=== PATIENT | female | born 1950 | race Caucasian/White ===

== ENCOUNTER 2023-08-04 08:26 | Inpatient (IN) | payer OTHER, BC ==
[2023-07-29 13:19] VITALS: BMI 35.9
[2023-08-04] MEDS ORDERED: ONDANSETRON 4 MG/2 ML VIAL IVPUSH PRN (08:53)
[2023-08-04] MEDS ORDERED: oxyCODONE HCL 5 MG TABLET PO PRN (08:53)
[2023-08-04] MEDS ORDERED: ACETAMINOPHEN 325 MG TABLET (FP) PO PRN (08:53)
[2023-08-04] MEDS ORDERED: VANCOMYCIN 1,000 MG VIAL (RESTRICTED TO ID ONLY) ONE (09:22)
[2023-08-04] MEDS ORDERED: MIDAZOLAM HCL 2 MG/2 ML SINGLE DOSE VIAL ONE ×2 (10:00→12:51)
[2023-08-04] MEDS ORDERED: ACETAMINOPHEN INJECTION 100 ML IVPB ONE (10:00)
[2023-08-04] MEDS ORDERED: BUPIVACAINE HCL/PF 0.5% (5MG/ML) 10 ML VIAL ONE (10:00)
[2023-08-04] MEDS ORDERED: BUPIVACAINE LIPOSOME/PF (EXPAREL) 266 MG/20 ML VIAL ONE (10:00)
[2023-08-04] MEDS ORDERED: FENTANYL CITRATE/PF 50 MCG/ML VIAL ONE ×2 (10:00→15:38)
[2023-08-04] MEDS ORDERED: TRANEXAMIC ACID 1000 MG/10 ML VIAL ONE ×2 (12:50→13:32)
[2023-08-04] MEDS ORDERED: PROPOFOL 20 ML ONE (13:00)
[2023-08-04] MEDS ORDERED: BUPIVICAINE 0.25%/MORPH PF/KETOROLAC - 51ML DISP.SYRINGE IA ONE (13:55)
[2023-08-04] MEDS ORDERED: MAGNESIUM HYDROX 2400MG/30ML ORAL SUSPENSION 30 ML CUP PO PRN (14:55)
[2023-08-04] MEDS ORDERED: MAG HYDROX/AL HYDROX/SIMETH 30 ML UNIT-DOSE CUP PO PRN (14:55)
[2023-08-04] MEDS: ONDANSETRON 4 MG/2 ML VIAL IVPUSH PRN (15:43)
[2023-08-04] MEDS: LACTATED RINGERS SOLUTION 1,000 ML IV SCH (15:59)
[2023-08-04] MEDS: CEFAZOLIN SODIUM 2 GM in DEXTROSE 5%-WATER 100 ML IVPB SCH (17:31)
[2023-08-04] MEDS: oxyCODONE HCL 5 MG TABLET PO PRN (17:38)
[2023-08-04] MEDS: ASCORBIC ACID 500 MG TABLET (FP) PO SCH (21:07)
[2023-08-04] MEDS: ASPIRIN 81 MG CHEWABLE TABLETS PO SCH (21:07)
[2023-08-04] MEDS: FAMOTIDINE 20 MG TABLET PO SCH (21:07)
[2023-08-04] MEDS: DEXAMETHASONE 4 MG TABLET (FP) PO ONE (21:08)
[2023-08-04] MEDS: SENNOSIDES/DOCUSATE COMBO (SENNA PLUS) TABLET (UD) PO SCH (21:08)
[2023-08-04] MEDS: CELECOXIB 100 MG CAPSULE PO SCH (21:08)
[2023-08-04] MEDS: BUDESONIDE/FORMETEROL FUMARATE 160/4.5 mcg INHALER IH SCH (21:09)
[2023-08-05] MEDS: ACETAMINOPHEN 1000 MG/100 ML BAG IVPB PRN (00:05)
[2023-08-05] MEDS: HYDROmorphone HCl 2 MG/ML VIAL IVPB PRN (07:02)
[2023-08-05 07:56] LABS: HEMATOCRIT 40.1 % (32.4-45.2); HEMOGLOBIN 12.8 G/dL (10.7-15.3); MCH 30.1 pg (25.7-33.7); MEAN CELL VOLUME 94.1 fl (80-96); MEAN PLT VOLUME 7.8 fl (7.5-11.1); PLATELET COUNT 367.5 10^3/uL (134-434); RBC 4.26 10^6/uL (3.60-5.2); RDW 13.9 % (11.6-15.6); WHITE BLOOD COUNT 11.6 10^3/uL (4.0-10.8)
[2023-08-05] MEDS: DEXAMETHASONE 4 MG TABLET (FP) PO ONE (09:07)
[2023-08-05] MEDS: KETOROLAC TROMETHAMINE 15 MG/ML VIAL IVPUSH PRN (09:07)
[2023-08-05] MEDS: MULTIVITAMINS (DAILY MVI) TABLET (FP) PO SCH (09:08)
[2023-08-05] MEDS: VALSARTAN 80 MG TABLET PO SCH (09:08)
[2023-08-05] MEDS: HYDROCHLOROTHIAZIDE 12.5 MG CAPSULE (FP) PO SCH (09:08)
[2023-08-05] MEDS: OMEGA-3 ACID ETHYL ESTERS (FATTY-ACIDS) 1 GM CAPSULE (FP) PO SCH (09:08)
[2023-08-05] MEDS: ATORVASTATIN CA 10 MG TABLET (FP) PO SCH (09:08)
[2023-08-05] MEDS ORDERED: PATIENT'S OWN MEDICATION (NON-FORMULARY) (Valsartan/Hydrochlorothiazide [Valsartan-Hctz 80 PO SCH (10:00)
[2023-08-05 11:19] VITALS: RESP 18
[2023-08-05 15:53] VITALS: BP 129/64; PULSE 70; TEMP 98.2
[2023-08-05] MEDS ORDERED: TRANEXAMIC ACID 1000 MG/10 ML VIAL IVPUSH ONE (19:00)
== END 2023-08-05 15:35 | disposition home health service (06) | DRG 470 ==
LOC: FASUSAT 08:26 → FM/S 14:55
PROVIDERS: ADMIT Internal Medicine; ATTEND Internal Medicine
PROC: 8E0Y0CZ Robotic Assisted Procedure of Lower Extremity, Open Approach (ICD-10-PCS; 2023-08-04)
PROC: 0SRC0JZ Replacement of Right Knee Joint with Synthetic Substitute, Open Approach (ICD-10-PCS; principal; 2023-08-04 13:16)
DX: M17.11 Unilateral primary osteoarthritis, right knee (principal)
CPT/HCPCS: 36415; 73560-TC-RT-FY; 85027; 94760; 97010-GP; 97116-GP; 97162-GP; C1776; J0131